=== PATIENT | male | born 1980 ===

== ENCOUNTER 2022-01-28 07:16 | Outpatient (CLI) | payer OTHER ==
--- NOTE | 2022-01-28 09:38 | MRI Report ---
PROCEDURE: Hip RT W/O INDICATIONS: LOW BACK PAIN, RIGHT HIP PAIN TECHNIQUE: Noncontrast coronal T1 spin echo and STIR through the bony pelvis. Coronal and axial T2 fast spin ec ho with fat saturation, sagittal T1 spin echo, and oblique axial T2 fast spin echo with fat saturatio n through the hip. COMPARISON: None. FINDINGS: Image quality: Excellent. Bones and joints: Mild periarticular osteophyte formation at the bilateral hip joints. Bone marrow o f the pelvic ring and proximal femurs show normal signal throughout. No intraosseous lesions or frac tures. No avascular necrosis of the femoral heads. The visualized lower lumbar spine appears normal ly aligned. Tendons: The gluteus medius and minimus tendons appear intact, without associated muscle atrophy. Th ere is mild T2 signal elevation at the femoral insertion site of the right gluteus medius and minimus tendons. The iliopsoas tendon appears intact, without adjacent bursal fluid collections. The origin of the hamstring tendon is intact at the ischial tuberosity, but demonstrates mild internal and surr ounding T2 signal elevation. Labrum and cartilage: The acetabular labrum appears intact in the absence of intra-articular contras t. Cartilage surface of the femoral head appears of normal thickness. The alpha angle of the femur is within normal limits at less than 55 degrees. Soft tissues: Visualized muscles demonstrate normal bulk and internal signal. The proximal sciatic neurovascular bundle appears normal adjacent to the hamstring tendons. No free pelvic fluid. Bladde r wall thickness is normal. Genitourinary structures and bowel loops appear normal where visualized. IMPRESSION: 1. Mild insertional tendinitis of the right gluteus medius and minimus tendons. 2. Mild right hamstring tendinitis. 3. Mild bilateral hip osteoarthritis. Reviewed by: Bill Roach MD on 01/28/2022 9:37 AM PDT Approved by: Bill Roach MD on 01/28/2022 9:37 AM PDT Station ID: [id number]
--- NOTE | 2022-01-28 09:40 | MRI Report ---
PROCEDURE: Lumbar Spine W/O INDICATIONS: LOW BACK PAIN, RIGHT HIP PAIN TECHNIQUE: Noncontrast sagittal T1 spin echo and T2 fast echo, sagittal STIR, axial T1 and T2 fast spin echo thr ough the lumbar spine. In cases with scoliosis, additional coronal T2 fast spin echo may be performe d. COMPARISON: None. FINDINGS: Image quality: Excellent. Alignment and Curvature: Trace degenerative anterolisthesis of L4 on L5. 4 mm degenerative anterolist hesis of L5 on S1. Bone Marrow: Marrow is of normal overall signal. No acute vertebral body compression fractures. Spinal Cord: Conus medullaris terminates at the L1-L2 level. Visualized cord demonstrates normal si gnal and size. Paraspinous Soft Tissues: No paravertebral masses. T11-T12: No canal stenosis or foraminal stenosis. T12-L1: No canal stenosis or foraminal stenosis. L1-L2: Mild facet hypertrophy. No canal stenosis or foraminal stenosis. L2-L3: Mild bilateral facet hypertrophy. No canal stenosis or foraminal stenosis. L3-L4: There is a right foraminal annulus tear with associated mild far posterior lateral disc prot rusion subjacent to the right L3 nerve root without nerve root impingement. However, this can potenti ally result in a right L3 radiculitis. The central canal is patent. The left foramen is unremarkable. There is mild bilateral facet hypertrophy. L4-L5: Severe bilateral foraminal narrowing. Bilateral foraminal annulus tears. No central canal sten osis. There is a large facet joint cyst emanating from the left facet far laterally, mildly impinging on the left L4 nerve root far laterally. L5-S1: Exuberant bilateral set hypertrophy. No central canal stenosis. Moderate to severe right for aminal narrowing with a degree of right foraminal L5 nerve root impingement. IMPRESSION: 1. Multilevel facet arthropathy, fairly impressive at L4-L5 and L5-S1. 2. No central canal stenosis. 3. A right foraminal annulus tear associated with small far lateral disc protrusion can potentially r esult in a right L3 radiculitis. Question: Does this patient have a right L3 radiculitis? If so, he m ay potentially benefit from a image guided targeted right L3 nerve root block. 4. An anteriorly directed large facet joint cyst off the left facet of L4-L5 mildly impinges on the l eft L4 nerve root bilaterally. 5. At L5-S1, there is moderate to severe right foraminal narrowing with a degree of right foraminal L 5 nerve root impingement. Reviewed by: Charlie Reyes MD on 01/28/2022 9:39 AM PDT Approved by: Charlie Reyes MD on 01/28/2022 9:39 AM PDT Station ID: [id number]
== END 2022-01-28 07:17 | disposition home or self-care (01) ==
LOC: DI 07:16
DX: M47.816 Spondylosis without myelopathy or radiculopathy, lumbar region (principal); M51.26 Other intervertebral disc displacement, lumbar region; M51.36 Other intervertebral disc degeneration, lumbar region; M48.061 Spinal stenosis, lumbar region without neurogenic claudication; M47.817 Spondylosis without myelopathy or radiculopathy, lumbosacral region; M53.86 Other specified dorsopathies, lumbar region; M76.01 Gluteal tendinitis, right hip; M77.8 Other enthesopathies, not elsewhere classified; M16.0 Bilateral primary osteoarthritis of hip